=== PATIENT | female | born 1955 | race Caucasian/White ===

== ENCOUNTER 2017-02-21 12:01 | Inpatient (IN) | payer MEDICAID ==
[~2017-02-21] VITALS: Ht 167.6 cm; Wt 85.6 kg
[2017-02-21] MEDS ORDERED: ALBUTEROL/IPRATROPIUM 2.5MG/0.5MG, 3 ML NPPB ONE (12:30)
[2017-02-21] MEDS ORDERED: ASPIRIN 81 MG TABLET CHEW PO ONE (12:30)
[2017-02-21] MEDS ORDERED: SODIUM CHLORIDE FLUSH 10ML SYR IVF ONE (12:30)
[2017-02-21] MEDS ORDERED: methylPREDNISolone SOD SUCC 125 MG/2 ML IVP ONE (12:30)
[2017-02-21] MEDS ORDERED: methylPREDNISolone SOD SUCC 125 MG/2 ML ONE (12:33)
[2017-02-21] MEDS ORDERED: ASPIRIN 81 MG TABLET CHEW ONE (12:34)
[2017-02-21] MEDS ORDERED: NITROGLYCERIN SINGLE TAB 0.4 MG SL ONE ×2 (12:34→13:19)
[2017-02-21] MEDS: NITROGLYCERIN SINGLE TAB 0.4 MG SL PRN ×2 (12:40→13:23)
[2017-02-21 13:02] LABS: BLOOD UREA NITROGEN 10 mg/dL (7-18)
[2017-02-21] MEDS ORDERED: LORazepam 2 MG/ML, 1ML IVPush ONE (13:30)
[2017-02-21] MEDS ORDERED: LORazepam 2 MG/ML, 1ML ONE (13:54)
[2017-02-21] MEDS ORDERED: HEPARIN 5,000 UNITS/ML, 1ML ONE (13:55)
[2017-02-21] MEDS ORDERED: HEPARIN 5,000 UNITS/ML, 1ML IV PRN (14:00)
[2017-02-21] MEDS ORDERED: HEPARIN 5,000 UNITS/ML, 1ML IV ONE (14:00)
[2017-02-21] MEDS ORDERED: SODIUM CHLORIDE FLUSH 10ML SYR IVF PRN (14:00)
[2017-02-21] MEDS ORDERED: HEPARIN 25,000 UNITS/500ML PMX 500 ML IV PRN (14:00)
[2017-02-21] MEDS ORDERED: MIDAZOLAM 1 MG/ML, 5ML ONE ×2 (15:22→16:11)
[2017-02-21] MEDS ORDERED: LIDOCAINE 2%, 20ML ONE (15:23)
[2017-02-21] MEDS ORDERED: NITROGLYCERIN 5 MG/ML, 10ML ONE (15:23)
[2017-02-21] MEDS ORDERED: HEPARIN 1,000 UNITS/ML, 10ML ONE (15:23)
[2017-02-21] MEDS ORDERED: BIVALIRUDIN 250 MG ONE ×2 (15:23→17:14)
[2017-02-21] MEDS ORDERED: FENTANYL PF 100 MCG/2ML ONE ×3 (15:23→17:00)
[2017-02-21] MEDS ORDERED: VERAPAMIL 2.5 MG/ML, 2ML ONE ×2 (15:23→16:24)
[2017-02-21] MEDS ORDERED: TEMAZEPAM 15 MG CAPSULE PO PRN (15:30)
[2017-02-21] MEDS ORDERED: ENALAPRILAT 1.25 MG/ML, 2ML IVPush PRN (15:30)
[2017-02-21] MEDS ORDERED: morphine SULFATE 10 MG/ML, 1ML IVPush PRN (15:30)
[2017-02-21] MEDS ORDERED: ACETAMINOPHEN 325 MG TABLET PO PRN (15:30)
[2017-02-21] MEDS ORDERED: ONDANSETRON 2MG/ML, 2ML IVPush PRN (15:30)
[2017-02-21 15:53] LABS: IS PT STATUS REG ER OR PRE ER? NO
[2017-02-21] MEDS ORDERED: PRASUGREL 10 MG TABLET ONE (16:11)
[2017-02-21] MEDS ORDERED: DIPHENHYDRAMINE 50 MG/ML, 1ML ONE (17:44)
[2017-02-21] MEDS ORDERED: BIVALIRUDIN 250 MG in DEXTROSE 5% 50 ML IV SCH (18:41)
[2017-02-21] MEDS ORDERED: LIDOCAINE 1%-EPI 1:100K, 20ML ONE (18:46)
[2017-02-21] MEDS: HYDROcodone/APAP 5/325 TABLET PO PRN (19:53)
[2017-02-21] MEDS: CEFTRIAXONE PMX 2GM/50ML 50 ML IV SCH (20:27)
[2017-02-21] MEDS: methylPREDNISolone SOD SUCC 125 MG/2 ML IVPush SCH ×2 (20:28→21:30)
[2017-02-21] MEDS: NICOTINE 21 MG/24 HR PATCH.TD24 TD SCH (20:28)
[2017-02-21] MEDS: DOXYCYCLINE 100MG TABLET PO SCH (20:29)
[2017-02-21] MEDS: SODIUM CHLORIDE 0.9% 1,000 ML IV SCH (20:29)
[2017-02-21] MEDS: ATORVASTATIN 80 MG TABLET PO SCH (20:29)
[2017-02-21 20:46] LABS: IS PT STATUS REG ER OR PRE ER? NO
[2017-02-21 22:05] VITALS: BP 105/75
[2017-02-22] MEDS: ALBUTEROL/IPRATROPIUM 2.5MG/0.5MG, 3 ML NPPB PRN (00:11)
[2017-02-22 00:43] LABS: IS PT STATUS REG ER OR PRE ER? NO
[2017-02-22] MEDS: methylPREDNISolone SOD SUCC 125 MG/2 ML IVPush SCH ×3 (03:26→15:30)
[2017-02-22] MEDS: SODIUM CHLORIDE 0.9% 1,000 ML IV SCH (04:19)
[2017-02-22] MEDS ORDERED: ASPIRIN 325 MG TABLET EC PO SCH (06:00)
[2017-02-22 06:07] LABS: BLOOD UREA NITROGEN 13 mg/dL (7-18)
[2017-02-22 06:08] LABS: BLOOD UREA NITROGEN 14 mg/dL (7-18)
[2017-02-22 06:15] LABS: IS PT STATUS REG ER OR PRE ER? NO
[2017-02-22] MEDS: PRASUGREL 10 MG TABLET PO SCH (08:37)
[2017-02-22] MEDS: LISINOPRIL 5 MG TABLET PO SCH (08:38)
[2017-02-22] MEDS: DOXYCYCLINE 100MG TABLET PO SCH ×2 (08:38→21:56)
[2017-02-22] MEDS: HYDROcodone/APAP 5/325 TABLET PO PRN (10:09)
[2017-02-22] MEDS: NICOTINE 21 MG/24 HR PATCH.TD24 TD SCH (15:30)
[2017-02-22] MEDS: CEFTRIAXONE PMX 2GM/50ML 50 ML IV SCH (15:40)
[2017-02-22 20:51] VITALS: BP_SYST 105; BP_SYST 132; BP_DIAS 61; BP_DIAS 69
[2017-02-22] MEDS: methylPREDNISolone SOD SUCC 40 MG/ML IVPush SCH (21:56)
[2017-02-22] MEDS: ATORVASTATIN 80 MG TABLET PO SCH (21:57)
[2017-02-23 01:54] VITALS: BP 105/67
[2017-02-23] MEDS: methylPREDNISolone SOD SUCC 40 MG/ML IVPush SCH ×3 (02:52→21:43)
[2017-02-23 06:00] LABS: BLOOD UREA NITROGEN 29 mg/dL (7-18)
[2017-02-23] MEDS ORDERED: ASPIRIN 325 MG TABLET EC PO SCH (06:00)
[2017-02-23 08:00] VITALS: BP 103/58
[2017-02-23] MEDS: HYDROcodone/APAP 5/325 TABLET PO PRN ×4 (09:00→22:40)
[2017-02-23] MEDS: DOXYCYCLINE 100MG TABLET PO SCH ×2 (09:00→21:43)
[2017-02-23] MEDS: PRASUGREL 10 MG TABLET PO SCH (09:00)
[2017-02-23] MEDS: LISINOPRIL 5 MG TABLET PO SCH (09:03)
[2017-02-23 14:00] VITALS: BP 103/56
[2017-02-23] MEDS: ALBUTEROL/IPRATROPIUM 2.5MG/0.5MG, 3 ML NPPB PRN ×2 (16:15→19:46)
[2017-02-23] MEDS: CEFTRIAXONE PMX 2GM/50ML 50 ML IV SCH (17:17)
[2017-02-23] MEDS: NICOTINE 21 MG/24 HR PATCH.TD24 TD SCH (17:17)
[2017-02-23] MEDS ORDERED: METOPROLOL SUCCINATE 25 MG TAB.ER.24H PO SCH (18:00)
[2017-02-23] MEDS ORDERED: ESTR1.25 PO (18:06)
[2017-02-23] MEDS ORDERED: DRON2.5C PO (18:07)
[2017-02-23 19:55] VITALS: BP 107/70
[2017-02-23] MEDS: ATORVASTATIN 80 MG TABLET PO SCH (21:43)
[2017-02-24 02:00] VITALS: BP 117/76
[2017-02-24] MEDS: HYDROcodone/APAP 5/325 TABLET PO PRN ×2 (02:45→14:29)
[2017-02-24] MEDS: methylPREDNISolone SOD SUCC 40 MG/ML IVPush SCH (05:31)
[2017-02-24 05:43] LABS: BLOOD UREA NITROGEN 30 mg/dL (7-18)
[2017-02-24] MEDS ORDERED: ASPIRIN 81 MG TABLET EC PO SCH (06:00)
[2017-02-24 07:40] VITALS: BP 147/84
[2017-02-24] MEDS ORDERED: LISINOPRIL 5 MG TABLET PO SCH (09:00)
[2017-02-24] MEDS: PRASUGREL 10 MG TABLET PO SCH (10:46)
[2017-02-24] MEDS: DOXYCYCLINE 100MG TABLET PO SCH (10:46)
[2017-02-24] MEDS ORDERED: DOCUSATE 100 MG CAPSULE ONE (11:12)
[2017-02-24] MEDS ORDERED: DOCUSATE 100 MG CAPSULE PO PRN (11:30)
[2017-02-24 12:25] VITALS: BP 151/79
[2017-02-24] MEDS: NICOTINE 21 MG/24 HR PATCH.TD24 TD SCH (14:29)
[2017-02-24] MEDS ORDERED: METO25TA91 PO (15:09)
[2017-02-24] MEDS ORDERED: ATOR80TA75 PO (15:09)
[2017-02-24] MEDS ORDERED: PRAS10TA4 PO (15:09)
[2017-02-24] MEDS ORDERED: PRED20TA PO (15:09)
[2017-02-24] MEDS ORDERED: DOXY100T PO (15:09)
[2017-02-24] MEDS ORDERED: LISI-167 PO (15:09)
[2017-02-24] MEDS ORDERED: ASPI-621 PO (15:09)
[2017-02-24] MEDS ORDERED: CEFD300C37 PO (15:09)
[2017-02-25] MEDS ORDERED: LISINOPRIL 10 MG TABLET PO SCH (09:00)
== END 2017-02-24 19:02 | disposition home or self-care (01) | DRG 248 ==
LOC: ED 13:18 → EDIP 13:44 → CSU 18:45 → 5SO 02-22 12:39
PROVIDERS: ATTEND Internal Medicine
PROC: 027 Heart and Great Vessels, Dilation (ICD-10-PCS; principal; 2017-02-21)
PROC: 4A023N7 Measurement of Cardiac Sampling and Pressure, Left Heart, Percutaneous Approach (ICD-10-PCS; 2017-02-21)
PROC: B2151ZZ Fluoroscopy of Left Heart using Low Osmolar Contrast (ICD-10-PCS; 2017-02-21)
DX: I21.4 Non-ST elevation (NSTEMI) myocardial infarction (principal); J44.1 Chronic obstructive pulmonary disease with (acute) exacerbation; E66.9 Obesity, unspecified; F17.210 Nicotine dependence, cigarettes, uncomplicated; D75.89 Other specified diseases of blood and blood-forming organs; E78.5 Hyperlipidemia, unspecified; I10 Essential (primary) hypertension; I25.10 Atherosclerotic heart disease of native coronary artery without angina pectoris; Z68.30 Body mass index [BMI] 30.0-30.9, adult; Z80.0 Family history of malignant neoplasm of digestive organs; Z82.49 Family history of ischemic heart disease and other diseases of the circulatory system; Z79.82 Long term (current) use of aspirin
CPT/HCPCS: 36415; 71020; 80048; 80061; 82040; 82607; 82746; 83735; 83880; 84100; 84443; 84484; 85025; 85520; 85610; 85730; 87081; 92928; 92978; 92979; 93005; 93306; 93458; 94640; 96372; 96374; 96375; 99156; 99157; C1753; C1760; C1876; C1894; J0583; J0696; J1644; J2250; J3010; J3490; J7620; C1725; C1769; C1887; J1200; J2060; J2270; J2920; J2930; J7030; J7512; Q9967

== ENCOUNTER 2017-06-21 14:06 | Inpatient (IN) | payer MEDICAID ==
[~2017-06-21] VITALS: Ht 167.6 cm; Wt 89.0 kg
[~2017-06-21 14:06] MED LIST: ASPI-621 PO; ATOR-2 PO; CEFD300C37 PO; DOXY100T PO; DRON2.5C PO; ESTR1.25 PO; LISI-167 PO; METO25TA91 PO; PRAS10TA4 PO; PRED20TA PO
[2017-06-21] MEDS ORDERED: PLEASE ENTER HEIGHT AND WEIGHT MC SCH (14:30)
[2017-06-21] MEDS ORDERED: SODIUM CHLORIDE 0.9% 1,000ML IVBOLUS ONE ×3 (14:30→17:00)
[2017-06-21] MEDS ORDERED: SODIUM CHLORIDE FLUSH 10ML SYR IVF ONE (14:30)
[2017-06-21 15:57] LABS: HEMATOCRIT 48.1 % (34.6-47.8); HEMOGLOBIN 16.5 g/dL (11.7-16.4); WHITE BLOOD COUNT 9.3 x10^3/uL (3.4-10)
[2017-06-21 16:00] LABS: OCCBLD OBC PASS
[2017-06-21 16:05] LABS: ASPARTATE AMINO TRANSFERASE 225 U/L (15-37); BLOOD UREA NITROGEN 20 mg/dL (7-18)
[2017-06-21 16:14] LABS: IS PT STATUS REG ER OR PRE ER? YES
[2017-06-21] MEDS ORDERED: OMNIPAQUE 350 MG/ML, 100ML BOTTLE ONE (17:16)
[2017-06-21] MEDS ORDERED: MOVIPREP POWDER 1 PREP KIT PO ONE (18:00)
[2017-06-21] MEDS ORDERED: TRAZ50TA18 PO (18:10)
[2017-06-21 18:12] LABS: HEMOGLOBIN 15.2 g/dL (11.7-16.4)
[2017-06-21] MEDS ORDERED: GOLYTELY 4,000ML ORAL.SOL PO ONE (18:30)
[2017-06-21] MEDS ORDERED: hydrALAzine 20 MG/ML, 1ML IVPush PRN (18:30)
[2017-06-21] MEDS: HYDROmorphone 2 MG/ML, 1ML IVPush PRN ×3 (21:13→22:40)
[2017-06-21] MEDS: LACTATED RINGERS 1,000 ML IV SCH (21:15)
[2017-06-21] MEDS ORDERED: MOVIPREP POWDER 1 PREP KIT PO STA (21:49)
[2017-06-21] MEDS ORDERED: Clonidine BC (23:09)
[2017-06-21] MEDS ORDERED: seroquel (23:10)
[2017-06-22 00:02] LABS: FERRITIN 526.3 ng/mL (8-252)
[2017-06-22] MEDS: ONDANSETRON 2MG/ML, 2ML IV PRN (00:22)
[2017-06-22 00:46] LABS: HEMATOCRIT 47.7 % (34.6-47.8); HEMOGLOBIN 16.2 g/dL (11.7-16.4); WHITE BLOOD COUNT 18.1 x10^3/uL (3.4-10)
[2017-06-22 00:47] LABS: DIFF TOTAL CELLS COUNTED 100 CELL DIFF
[2017-06-22 01:13] VITALS: BP 94/64
[2017-06-22 01:28] LABS: VERIFY COUNTS? YES
[2017-06-22 01:30] LABS: ANISOCYTOSIS 1+
[2017-06-22 01:31] LABS: LARGE PLATELETS 1+
[2017-06-22 05:08] LABS: HEMATOCRIT 45.7 % (34.6-47.8); HEMOGLOBIN 15.6 g/dL (11.7-16.4)
[2017-06-22] MEDS: LACTATED RINGERS 1,000 ML IV SCH (05:20)
[2017-06-22 05:21] LABS: BLOOD UREA NITROGEN 23 mg/dL (7-18)
[2017-06-22] MEDS: PANTOPRAZOLE 40 MG IV IVPush SCH ×2 (05:24→18:10)
[2017-06-22 06:47] VITALS: BP 113/75
[2017-06-22] MEDS ORDERED: LABETALOL 5MG/ML, 20ML IV PRN ×2 (07:00→13:30)
[2017-06-22] MEDS ORDERED: ALBUTEROL/IPRATROPIUM 2.5MG/0.5MG, 3 ML NPPB PRN ×2 (07:00→13:30)
[2017-06-22] MEDS ORDERED: MIDAZOLAM 1 MG/ML, 2ML IV PRN ×2 (07:00→13:30)
[2017-06-22] MEDS ORDERED: PROMETHAZINE 25 MG/ML, 1ML IV PRN ×2 (07:00→13:30)
[2017-06-22] MEDS ORDERED: ONDANSETRON 2MG/ML, 2ML IVPush PRN ×2 (07:00→13:30)
[2017-06-22] MEDS ORDERED: hydrALAzine 20 MG/ML, 1ML IV PRN ×2 (07:00→13:30)
[2017-06-22] MEDS ORDERED: PROPOFOL 10 MG/ML, 20ML ONE ×2 (07:14→10:58)
[2017-06-22] MEDS ORDERED: PANTOPRAZOLE 40 MG IV IVPush SCH (07:30)
[2017-06-22] MEDS ORDERED: FENTANYL PF 100 MCG/2ML ONE ×2 (08:13→12:40)
[2017-06-22] MEDS: FENTANYL PF 100 MCG/2ML IV PRN ×4 (08:15→12:50)
[2017-06-22] MEDS ORDERED: LIDOCAINE GEL 2%, 5ML ONE (10:28)
[2017-06-22] MEDS ORDERED: FENTANYL PF 250 MCG/5ML ONE (10:29)
[2017-06-22] MEDS ORDERED: MIDAZOLAM 1 MG/ML, 2ML ONE (10:29)
[2017-06-22] MEDS ORDERED: SODIUM CHLORIDE 0.9% 1,000ML IVBOLUS ONE (10:30)
[2017-06-22] MEDS ORDERED: NEOSTIGMINE 1 MG/ML, 10ML ONE (10:44)
[2017-06-22] MEDS ORDERED: ONDANSETRON 2MG/ML, 2ML ONE (10:44)
[2017-06-22] MEDS ORDERED: PHENYLEPHRINE 10 MG/ML ONE (10:44)
[2017-06-22] MEDS ORDERED: BUPIVACAINE/PF 0.5% ONE (10:46)
[2017-06-22] MEDS ORDERED: EPINEPHRINE 1 MG/ML, 1ML ONE (10:47)
[2017-06-22] MEDS ORDERED: SUCCINYLCHOLINE 20 MG/ML, 10ML ONE (10:58)
[2017-06-22] MEDS ORDERED: DEXAMETHASONE 4 MG/ML, 1ML ONE (10:58)
[2017-06-22] MEDS ORDERED: ROCURONIUM 10 MG/ML,10ML ONE (10:58)
[2017-06-22] MEDS ORDERED: GLYCOPYRROLATE 0.2MG/1ML, 5ML ONE (10:58)
[2017-06-22] MEDS ORDERED: CEFOTETAN PMX 2GM/50ML 50 ML ONE (10:58)
[2017-06-22] MEDS ORDERED: PIPERACILLIN/TAZO/PMX 3.375GM 50 ML ONE (12:04)
[2017-06-22] MEDS ORDERED: MEPERIDINE/PF 25MG/0.5ML ONE (13:13)
[2017-06-22] MEDS ORDERED: DIAZEPAM 5 MG/ML, 2ML IVPush PRN (13:30)
[2017-06-22] MEDS ORDERED: MEPERIDINE/PF 25MG/0.5ML IVPush PRN ×2 (13:30)
[2017-06-22] MEDS ORDERED: OXYcodone 5 MG/5 ML ORAL.SOL UDC PO PRN (13:30)
[2017-06-22] MEDS ORDERED: LORazepam 2 MG/ML, 1ML IVPush PRN ×2 (13:30)
[2017-06-22] MEDS ORDERED: FENTANYL PF 100 MCG/2ML IV PRN (13:30)
[2017-06-22] MEDS ORDERED: HYDROmorphone 1 MG/ML, 1ML IV PRN (13:30)
[2017-06-22] MEDS: SODIUM CHLORIDE 0.9% 1,000 ML IV SCH ×2 (14:28→21:10)
[2017-06-22] MEDS: PIPERACILLIN/TAZO/PMX 3.375GM 50 ML IV SCH ×2 (14:28→20:57)
[2017-06-22] MEDS ORDERED: SODIUM CHLORIDE 0.9% 1,000 ML IV SCH (14:30)
[2017-06-22 14:45] VITALS: BP 106/84
[2017-06-22 15:30] LABS: DAU SCREEN DISCLAIMER
[2017-06-22] MEDS ORDERED: MAGNESIUM SULFATE PMX 2GM/50ML 50 ML IV ONE (18:30)
[2017-06-22] MEDS: THIAMINE 100 MG, MVI ADULT 10 ML in D5%-0.9% NACL 1,000 ML IV SCH (19:24)
[2017-06-22] MEDS: FOLIC ACID 1 MG TABLET PO SCH (19:53)
[2017-06-22] MEDS: ENOXAPARIN 30 MG/0.3 ML SQ SCH (21:22)
[2017-06-22] MEDS: DIAZEPAM 5 MG/ML, 10ML VIAL IV PRN ×2 (21:22→22:49)
[2017-06-23] MEDS ORDERED: DIAZEPAM 5 MG/ML, 10ML VIAL IV PRN (01:00)
[2017-06-23] MEDS: HYDROmorphone 2 MG/ML, 1ML IVPush PRN (01:07)
[2017-06-23] MEDS: PIPERACILLIN/TAZO/PMX 3.375GM 50 ML IV SCH ×4 (03:24→22:10)
[2017-06-23] MEDS: SODIUM CHLORIDE 0.9% 1,000 ML IV SCH ×2 (03:50→06:44)
[2017-06-23 04:00] VITALS: BP 128/75
[2017-06-23 04:37] LABS: HEMATOCRIT 32.8 % (34.6-47.8); HEMOGLOBIN 11.3 g/dL (11.7-16.4); WHITE BLOOD COUNT 15.1 x10^3/uL (3.4-10)
[2017-06-23 04:50] LABS: ASPARTATE AMINO TRANSFERASE 108 U/L (15-37); BLOOD UREA NITROGEN 23 mg/dL (7-18)
[2017-06-23] MEDS: PANTOPRAZOLE 40 MG IV IVPush SCH ×2 (05:19→18:30)
[2017-06-23 05:38] LABS: DIFF TOTAL CELLS COUNTED 100 CELL DIFF
[2017-06-23 05:41] LABS: VERIFY COUNTS? YES
[2017-06-23 05:42] LABS: ANISOCYTOSIS 1+; LARGE PLATELETS 1+
[2017-06-23] MEDS ORDERED: ALBUTEROL SULFATE 2.5 MG/3 ML NPPB SCH (07:00)
[2017-06-23] MEDS: LORazepam 2 MG/ML, 1ML IVPush PRN ×5 (09:13→23:03)
[2017-06-23] MEDS: ENOXAPARIN 30 MG/0.3 ML SQ SCH ×2 (09:14→19:50)
[2017-06-23] MEDS ORDERED: ALBUTEROL SULFATE 2.5 MG/3 ML NPPB PRN (10:00)
[2017-06-23 12:14] VITALS: BP 122/73
[2017-06-23 13:17] LABS: HEMOGLOBIN 10.6 g/dL (11.7-16.4)
[2017-06-23 19:42] VITALS: BP 113/62
[2017-06-23] MEDS: THIAMINE 100 MG, MVI ADULT 10 ML in D5%-0.9% NACL 1,000 ML IV SCH (19:49)
[2017-06-23] MEDS: FOLIC ACID 1 MG TABLET PO SCH (19:49)
[2017-06-24 03:08] VITALS: BP 114/67
[2017-06-24] MEDS: PANTOPRAZOLE 40 MG IV IVPush SCH ×2 (03:41→16:57)
[2017-06-24] MEDS: PIPERACILLIN/TAZO/PMX 3.375GM 50 ML IV SCH ×4 (03:41→23:29)
[2017-06-24] MEDS: LORazepam 2 MG/ML, 1ML IVPush PRN ×7 (03:42→21:50)
[2017-06-24 05:50] LABS: HEMATOCRIT 28.6 % (34.6-47.8); HEMOGLOBIN 9.6 g/dL (11.7-16.4); WHITE BLOOD COUNT 7.6 x10^3/uL (3.4-10)
[2017-06-24 06:09] LABS: DIFF TOTAL CELLS COUNTED 100 CELL DIFF
[2017-06-24 06:14] LABS: VERIFY COUNTS? YES
[2017-06-24 06:15] LABS: ANISOCYTOSIS 1+; LARGE PLATELETS 1+
[2017-06-24 06:23] LABS: ASPARTATE AMINO TRANSFERASE 84 U/L (15-37); BLOOD UREA NITROGEN 20 mg/dL (7-18)
[2017-06-24 06:52] VITALS: BP 152/86
[2017-06-24] MEDS: ENOXAPARIN 30 MG/0.3 ML SQ SCH ×2 (09:41→20:35)
[2017-06-24 13:22] VITALS: BP 137/73
[2017-06-24 15:16] LABS: HEMATOCRIT 29.8 % (34.6-47.8); HEMOGLOBIN 10.2 g/dL (11.7-16.4)
[2017-06-24] MEDS: CHLORDIAZEPOXIDE 25 MG CAPSULE PO SCH ×2 (16:57→20:35)
[2017-06-24] MEDS: FOLIC ACID 1 MG TABLET PO SCH (20:35)
[2017-06-24 20:47] VITALS: BP 155/79
[2017-06-25] MEDS: LORazepam 2 MG/ML, 1ML IVPush PRN ×6 (00:10→19:49)
[2017-06-25] MEDS: THIAMINE 100 MG, MVI ADULT 10 ML in D5%-0.9% NACL 1,000 ML IV SCH ×2 (00:10→20:58)
[2017-06-25 03:42] VITALS: BP 150/81
[2017-06-25] MEDS: PIPERACILLIN/TAZO/PMX 3.375GM 50 ML IV SCH ×2 (04:29→10:06)
[2017-06-25 05:17] LABS: HEMATOCRIT 29.4 % (34.6-47.8); HEMOGLOBIN 10.2 g/dL (11.7-16.4); WHITE BLOOD COUNT 5.9 x10^3/uL (3.4-10)
[2017-06-25 05:32] LABS: ASPARTATE AMINO TRANSFERASE 65 U/L (15-37); BLOOD UREA NITROGEN 14 mg/dL (7-18)
[2017-06-25] MEDS: PANTOPRAZOLE 40 MG IV IVPush SCH ×2 (05:33→17:20)
[2017-06-25 05:49] LABS: DIFF TOTAL CELLS COUNTED 100 CELL DIFF
[2017-06-25 05:52] LABS: ANISOCYTOSIS 1+; VERIFY COUNTS? YES
[2017-06-25 05:53] LABS: LARGE PLATELETS 1+; POIKILOCYTOSIS 1+
[2017-06-25 07:39] VITALS: BP 159/84
[2017-06-25] MEDS ORDERED: MAGNESIUM SULFATE PMX 2GM/50ML 50 ML IV ONE (08:00)
[2017-06-25] MEDS: CHLORDIAZEPOXIDE 25 MG CAPSULE PO SCH ×3 (08:43→19:49)
[2017-06-25] MEDS: ENOXAPARIN 30 MG/0.3 ML SQ SCH (08:43)
[2017-06-25 12:51] VITALS: BP 132/69
[2017-06-25] MEDS: CEFTRIAXONE PMX 1GM/50ML 50 ML IV SCH (16:28)
[2017-06-25] MEDS: METRONIDAZOLE PMX 500MG/100ML 100 ML IV SCH (17:20)
[2017-06-25] MEDS: PRASUGREL 10 MG TABLET PO SCH (17:21)
[2017-06-25] MEDS: NICOTINE 21 MG/24 HR PATCH.TD24 TD SCH (17:21)
[2017-06-25 19:04] VITALS: BP 148/83
[2017-06-25] MEDS: FOLIC ACID 1 MG TABLET PO SCH (19:50)
[2017-06-25] MEDS: HYDROmorphone 2 MG/ML, 1ML IVPush PRN (20:58)
[2017-06-26] MEDS: METRONIDAZOLE PMX 500MG/100ML 100 ML IV SCH ×3 (01:02→17:09)
[2017-06-26] MEDS: LORazepam 2 MG/ML, 1ML IVPush PRN (01:02)
[2017-06-26 01:15] VITALS: BP 141/81
[2017-06-26 01:19] VITALS: BP 126/70
[2017-06-26] MEDS: HYDROmorphone 2 MG/ML, 1ML IVPush PRN ×3 (04:29→18:47)
[2017-06-26 04:57] LABS: ASPARTATE AMINO TRANSFERASE 73 U/L (15-37); BLOOD UREA NITROGEN 8 mg/dL (7-18)
[2017-06-26] MEDS: PANTOPRAZOLE 40 MG IV IVPush SCH ×2 (05:05→17:17)
[2017-06-26] MEDS: ASPIRIN 81 MG TABLET EC PO SCH (05:05)
[2017-06-26] MEDS ORDERED: MAGNESIUM SULFATE PMX 2GM/50ML 50 ML IV ONE (06:00)
[2017-06-26 06:11] LABS: HEMATOCRIT 29.6 % (34.6-47.8); HEMOGLOBIN 10.1 g/dL (11.7-16.4); WHITE BLOOD COUNT 5.4 x10^3/uL (3.4-10)
[2017-06-26 07:13] VITALS: BP 142/66
[2017-06-26] MEDS: ENOXAPARIN 40 MG/0.4 ML SQ SCH (09:19)
[2017-06-26] MEDS: NICOTINE 21 MG/24 HR PATCH.TD24 TD SCH (09:19)
[2017-06-26] MEDS: CHLORDIAZEPOXIDE 25 MG CAPSULE PO SCH ×2 (09:19→19:25)
[2017-06-26 14:00] VITALS: BP 108/71
[2017-06-26] MEDS: CEFTRIAXONE PMX 1GM/50ML 50 ML IV SCH (16:17)
[2017-06-26] MEDS: PRASUGREL 10 MG TABLET PO SCH (17:10)
[2017-06-26 18:45] VITALS: BP 163/78
[2017-06-26] MEDS ORDERED: HYDROmorphone 1 MG/ML, 1ML ONE (18:46)
[2017-06-26] MEDS: ONDANSETRON 2MG/ML, 2ML IV PRN (19:25)
[2017-06-26] MEDS: FOLIC ACID 1 MG TABLET PO SCH (19:25)
[2017-06-26] MEDS: THIAMINE 100 MG, MVI ADULT 10 ML in D5%-0.9% NACL 1,000 ML IV SCH (20:55)
[2017-06-27 00:11] VITALS: BP 159/80
[2017-06-27] MEDS: LORazepam 2 MG/ML, 1ML IVPush PRN ×3 (00:19→20:15)
[2017-06-27] MEDS: METRONIDAZOLE PMX 500MG/100ML 100 ML IV SCH ×3 (00:41→17:26)
[2017-06-27 05:46] LABS: HEMATOCRIT 29.9 % (34.6-47.8); HEMOGLOBIN 10.5 g/dL (11.7-16.4); WHITE BLOOD COUNT 5.1 x10^3/uL (3.4-10)
[2017-06-27 05:57] LABS: ASPARTATE AMINO TRANSFERASE 104 U/L (15-37); BLOOD UREA NITROGEN 7 mg/dL (7-18)
[2017-06-27] MEDS: ASPIRIN 81 MG TABLET EC PO SCH (05:57)
[2017-06-27] MEDS: PANTOPRAZOLE 40 MG IV IVPush SCH (05:57)
[2017-06-27 07:22] VITALS: BP 116/66
[2017-06-27] MEDS: CHLORDIAZEPOXIDE 25 MG CAPSULE PO SCH ×2 (09:44→20:14)
[2017-06-27] MEDS: NICOTINE 21 MG/24 HR PATCH.TD24 TD SCH (09:45)
[2017-06-27] MEDS: ENOXAPARIN 40 MG/0.4 ML SQ SCH (09:45)
[2017-06-27] MEDS: CIPROFLOXACIN 500 MG TABLET PO SCH ×4 (12:00→20:14)
[2017-06-27 13:45] VITALS: BP 130/74
[2017-06-27] MEDS: PANTOPROZOLE 40MG TABLET PO SCH (14:19)
[2017-06-27] MEDS: PRASUGREL 10 MG TABLET PO SCH (17:26)
[2017-06-27 19:14] VITALS: BP 126/59
[2017-06-27] MEDS: FOLIC ACID 1 MG TABLET PO SCH (20:14)
[2017-06-27] MEDS: THIAMINE 100 MG, MVI ADULT 10 ML in D5%-0.9% NACL 1,000 ML IV SCH (21:30)
[2017-06-27] MEDS ORDERED: ALBUTEROL SULFATE 2.5 MG/3 ML ONE (22:02)
[2017-06-28] MEDS: METRONIDAZOLE PMX 500MG/100ML 100 ML IV SCH ×2 (00:36→09:17)
[2017-06-28] MEDS: PANTOPROZOLE 40MG TABLET PO SCH ×3 (00:36→19:54)
[2017-06-28 01:10] VITALS: BP 118/67
[2017-06-28] MEDS: HYDROmorphone 2 MG/ML, 1ML IVPush PRN (01:26)
[2017-06-28] MEDS: ASPIRIN 81 MG TABLET EC PO SCH (06:08)
[2017-06-28] MEDS ORDERED: ALBUTEROL SULFATE 2.5 MG/3 ML ONE (06:25)
[2017-06-28] MEDS: ALBUTEROL SULFATE 2.5 MG/3 ML NPPB SCH ×2 (06:25→20:01)
[2017-06-28 07:14] VITALS: BP 127/72
[2017-06-28] MEDS: ENOXAPARIN 40 MG/0.4 ML SQ SCH (09:18)
[2017-06-28] MEDS: CIPROFLOXACIN 500 MG TABLET PO SCH ×2 (09:18→19:54)
[2017-06-28] MEDS: NICOTINE 21 MG/24 HR PATCH.TD24 TD SCH (09:18)
[2017-06-28] MEDS: CHLORDIAZEPOXIDE 25 MG CAPSULE PO SCH (09:18)
[2017-06-28] MEDS ORDERED: BISACODYL 10 MG SUPP PR ONE (13:39)
[2017-06-28] MEDS: BISACODYL 10 MG SUPP PR SCH ×2 (14:00→19:54)
[2017-06-28 14:10] VITALS: BP 116/68
[2017-06-28] MEDS: metroNIDAZOLE 500 MG TABLET PO SCH ×2 (16:07→19:54)
[2017-06-28] MEDS: PRASUGREL 10 MG TABLET PO SCH (17:14)
[2017-06-28] MEDS: FOLIC ACID 1 MG TABLET PO SCH (19:54)
[2017-06-28 20:01] VITALS: BP 129/71
[2017-06-28] MEDS: LORazepam 2 MG/ML, 1ML IVPush PRN (21:41)
[2017-06-28] MEDS: THIAMINE 100 MG, MVI ADULT 10 ML in D5%-0.9% NACL 1,000 ML IV SCH (22:22)
[2017-06-29 03:02] VITALS: BP 113/74
[2017-06-29 05:06] LABS: HEMATOCRIT 29.7 % (34.6-47.8); HEMOGLOBIN 10.4 g/dL (11.7-16.4); WHITE BLOOD COUNT 5.8 x10^3/uL (3.4-10)
[2017-06-29] MEDS: ASPIRIN 81 MG TABLET EC PO SCH (05:08)
[2017-06-29 05:11] LABS: BLOOD UREA NITROGEN 3 mg/dL (7-18)
[2017-06-29 05:12] LABS: ASPARTATE AMINO TRANSFERASE 50 U/L (15-37)
[2017-06-29 07:07] VITALS: BP 145/76
[2017-06-29] MEDS: metroNIDAZOLE 500 MG TABLET PO SCH (08:19)
[2017-06-29] MEDS: CIPROFLOXACIN 500 MG TABLET PO SCH (08:19)
[2017-06-29] MEDS: PANTOPROZOLE 40MG TABLET PO SCH (08:19)
[2017-06-29] MEDS: ENOXAPARIN 40 MG/0.4 ML SQ SCH ×2 (08:20→08:24)
[2017-06-29] MEDS: NICOTINE 21 MG/24 HR PATCH.TD24 TD SCH (08:20)
[2017-06-29] MEDS: LORazepam 2 MG/ML, 1ML IVPush PRN (09:38)
[2017-06-29] MEDS ORDERED: POTA20TA91 PO (12:21)
[2017-06-29] MEDS ORDERED: FURO-93 PO (12:21)
[2017-06-29] MEDS ORDERED: CIPR500T87 PO (12:21)
[2017-06-29] MEDS ORDERED: METR500T PO (12:21)
[2017-06-29 13:33] VITALS: BP 132/84
== END 2017-06-29 14:12 | disposition home or self-care (01) | DRG 853 ==
LOC: ED 16:12 → EDIP 18:17 → 4NOR 20:00 → CCU 06-22 16:45 → 4NOR 06-23 12:03
PROVIDERS: ADMIT Family Medicine; ATTEND Family Medicine
PROC: 0DQ80ZZ Repair Small Intestine, Open Approach (ICD-10-PCS; 2017-06-22)
PROC: 0T778DZ Dilation of Left Ureter with Intraluminal Device, Via Natural or Artificial Opening Endoscopic (ICD-10-PCS; 2017-06-22)
PROC: 0DBM8ZX Excision of Descending Colon, Via Natural or Artificial Opening Endoscopic, Diagnostic (ICD-10-PCS; 2017-06-22)
PROC: 0DBL8ZX Excision of Transverse Colon, Via Natural or Artificial Opening Endoscopic, Diagnostic (ICD-10-PCS; 2017-06-22)
PROC: 0DJ08ZZ Inspection of Upper Intestinal Tract, Via Natural or Artificial Opening Endoscopic (ICD-10-PCS; 2017-06-22)
PROC: 0T9B70Z Drainage of Bladder with Drainage Device, Via Natural or Artificial Opening (ICD-10-PCS; principal; 2017-06-22 07:00)
DX: A41.9 Sepsis, unspecified organism (principal); G93.40 Encephalopathy, unspecified; N17.0 Acute kidney failure with tubular necrosis; K55.9 Vascular disorder of intestine, unspecified; D69.6 Thrombocytopenia, unspecified; I95.9 Hypotension, unspecified; N13.2 Hydronephrosis with renal and ureteral calculous obstruction; N39.0 Urinary tract infection, site not specified; F10.239 Alcohol dependence with withdrawal, unspecified; E86.9 Volume depletion, unspecified; F15.90 Other stimulant use, unspecified, uncomplicated; F17.200 Nicotine dependence, unspecified, uncomplicated; I10 Essential (primary) hypertension; I25.10 Atherosclerotic heart disease of native coronary artery without angina pectoris; I25.2 Old myocardial infarction; J44.9 Chronic obstructive pulmonary disease, unspecified; B96.89 Other specified bacterial agents as the cause of diseases classified elsewhere; K20.9 Esophagitis, unspecified; K29.70 Gastritis, unspecified, without bleeding; K57.90 Diverticulosis of intestine, part unspecified, without perforation or abscess without bleeding; K66.0 Peritoneal adhesions (postprocedural) (postinfection); K76.9 Liver disease, unspecified; R74.0 Nonspecific elevation of levels of transaminase and lactic acid dehydrogenase [LDH]; M47.816 Spondylosis without myelopathy or radiculopathy, lumbar region; Z80.0 Family history of malignant neoplasm of digestive organs; Z80.1 Family history of malignant neoplasm of trachea, bronchus and lung; Z80.8 Family history of malignant neoplasm of other organs or systems; Z95.5 Presence of coronary angioplasty implant and graft
CPT/HCPCS: 36415; 71010; 74000; 74177; 76000; 76705; 80048; 80053; 80307; 81001; 82105; 82140; 82272; 82607; 82728; 82746; 83540; 83550; 83605; 83735; 83880; 84425; 84443; 84484; 85014; 85018; 85025; 85610; 85730; 86850; 86900; 87077; 87081; 87086; 87186; 87324; 88305; 93005; 94640; 96360; J0171; J0696; J1100; J1170; J1650; J2175; J2250; J2405; J2543; J2704; J2710; J3010; J3360; J3411; J3490; J7042; J7613; Q9967; C1758; C1769; C2617; C9113; G0479; J0330; J2060; J2370; J3475; J7030; J7120; S0074

== ENCOUNTER → 2017-07-25 | Outpatient (CLI) | payer MEDICAID ==
[~2017-07-25] MED LIST changes: +CIPR500T87 PO; +Clonidine BC; +FURO-93 PO; +METR500T PO; +POTA20TA91 PO; +TRAZ50TA18 PO; +seroquel
== END | disposition home or self-care (01) ==
LOC: CVU 12:32
PROVIDERS: ATTEND Internal Medicine Cardiovascular Disease
DX: R60.9 Edema, unspecified (principal)
CPT/HCPCS: 93306

== ENCOUNTER → 2017-08-13 | Outpatient (CLI) | payer MEDICAID ==
[~2017-08-13] MED LIST changes: +BUSP5TAB2 PO; +CLON0.1T PO
== END | disposition home or self-care (01) ==
LOC: RAD 12:53
PROVIDERS: ATTEND Urology
DX: Z01.818 Encounter for other preprocedural examination (principal); N20.0 Calculus of kidney
CPT/HCPCS: 71046

== ENCOUNTER 2017-08-29 12:23 | Inpatient (IN) | payer MEDICAID ==
[~2017-08-29] VITALS: Ht 165.1 cm; Wt 87.2 kg
[~2017-08-29 12:23] MED LIST changes: -BUSP5TAB2 PO; -CLON0.1T PO
[2017-08-29 14:37] LABS: BASOPHILS # (AUTO) 0.05 x10^3/uL (0-0.1); BASOPHILS % (AUTO) 1 % (0-1); EOSINOPHILS # (AUTO) 0.15 x10^3/uL (0-0.4); EOSINOPHILS % (AUTO) 2 % (1-7); LYMPHOCYTES # (AUTO) 2.14 x10^3/uL (1-3.4); LYMPHOCYTES % (AUTO) 30 % (22-44); MD NO; MEAN CORPUSCULAR HGB CONC 33.8 g/dL (32.4-35.8); MEAN CORPUSCULAR VOLUME 97.5 fL (80-100); MEAN PLATELET VOLUME 11.1 fL (7.4-10.4); MONOCYTES % (AUTO) 7 % (2-9); NEUTROPHILS # (AUTO) 4.31 x10^3/uL (1.8-6.8); NEUTROPHILS % (AUTO) 60 % (42-75); PLATELET COUNT 100 x10^3/uL (130-400); RED BLOOD COUNT 4.36 x10^6/uL (3.82-5.3); RED CELL DISTRIBUTION WIDTH 12.8 % (9.6-15.2)
[2017-08-29 14:49] LABS: ALANINE AMINOTRANSFERASE 59 U/L (12-78); ALBUMIN 3.7 g/dL (3.4-5.0); ANION GAP 9 mmol/L (5-15); CALCIUM 9.1 mg/dL (8.5-10.1); CHLORIDE 98 mmol/L (98-107); CREATININE 2.23 mg/dL (0.55-1.02)
[2017-08-29 14:51] LABS: ALKALINE PHOSPHATASE 99 U/L (45-117); BILIRUBIN,TOTAL 1.5 mg/dL (0.2-1.0); TOTAL PROTEIN 8.3 g/dL (6.4-8.2)
[2017-08-29] MEDS ORDERED: SODIUM CHLORIDE 0.9% 1,000 ML IV ONE (18:00)
[2017-08-29] MEDS ORDERED: SODIUM CHLORIDE 0.9% 1,000ML IVBOLUS ONE (18:00)
[2017-08-29 19:58] LABS: CULTURE INDICATED? YES; MICROSCOPIC INDICATED
[2017-08-29 20:06] LABS: AMPHETAMINE SCREEN, URINE Negative (Negative); BARBITURATE SCREEN, URINE Positive (Negative); BENZODIAZEPINE SCREEN, URINE Positive (Negative); CANNABINOID SCREEN, URINE Negative (Negative); COCAINE SCREEN, URINE Negative (Negative); METHADONE SCREEN, URINE Negative (Negative); OPIATE SCREEN, URINE Negative (Negative)
[2017-08-29] MEDS ORDERED: CEFTRIAXONE PMX 1GM/50ML 50 ML IV ONE (21:00)
[2017-08-29] MEDS ORDERED: CEFTRIAXONE PMX 1GM/50ML 50 ML ONE (21:15)
[2017-08-29] MEDS ORDERED: BUSP5TAB2 PO (21:46)
[2017-08-29] MEDS ORDERED: CLON0.1T PO (21:46)
[2017-08-29] MEDS ORDERED: ONDANSETRON ODT 4 MG PO PRN (22:00)
[2017-08-29] MEDS ORDERED: DOCUSATE 100 MG CAPSULE PO PRN (22:00)
[2017-08-29] MEDS ORDERED: ACETAMINOPHEN 325 MG TABLET PO PRN (22:00)
[2017-08-29] MEDS ORDERED: hydrALAzine 20 MG/ML, 1ML IVPush PRN (22:00)
[2017-08-29 22:20] VITALS: BP 122/78
[2017-08-29] MEDS: NICOTINE 14MG/24 HR PATCH.TD24 TD SCH (22:38)
[2017-08-29] MEDS: METOPROLOL SUCCINATE 25 MG TAB.ER.24H PO SCH (22:38)
[2017-08-29] MEDS: TRAZODONE 50MG TABLET PO SCH (22:38)
[2017-08-29] MEDS: SODIUM CHLORIDE 0.9% 1,000 ML IV SCH (22:39)
[2017-08-30 01:37] VITALS: BP 87/57
[2017-08-30 01:48] VITALS: BP_SYST 57; BP_SYST 87; BP_DIAS 54; BP_DIAS 55
[2017-08-30 05:51] LABS: CALCIUM 8.4 mg/dL (8.5-10.1); CHLORIDE 105 mmol/L (98-107)
[2017-08-30 05:52] LABS: ANION GAP 9 mmol/L (5-15); CREATININE 1.47 mg/dL (0.55-1.02)
[2017-08-30 06:14] LABS: MEAN CORPUSCULAR HEMOGLOBIN 33.2 pg (27.0-34.8); MEAN CORPUSCULAR HGB CONC 34.1 g/dL (32.4-35.8); MEAN CORPUSCULAR VOLUME 97.4 fL (80-100); RED BLOOD COUNT 4.06 x10^6/uL (3.82-5.3); RED CELL DISTRIBUTION WIDTH 12.5 % (9.6-15.2)
[2017-08-30] MEDS: SODIUM CHLORIDE 0.9% 1,000 ML IV SCH ×2 (06:23→17:33)
[2017-08-30] MEDS: ASPIRIN 81 MG TABLET EC PO SCH (06:23)
[2017-08-30 06:52] LABS: BASOPHILS # (AUTO) 0.04 x10^3/uL (0-0.1); BASOPHILS % (AUTO) 1 % (0-1); EOSINOPHILS # (AUTO) 0.22 x10^3/uL (0-0.4); EOSINOPHILS % (AUTO) 4 % (1-7); LYMPHOCYTES # (AUTO) 2.86 x10^3/uL (1-3.4); LYMPHOCYTES % (AUTO) 50 % (22-44); MD SCAN; MEAN PLATELET VOLUME 11.7 fL (7.4-10.4); MONOCYTES # (AUTO) 0.63 x10^3/uL (0.2-0.8); MONOCYTES % (AUTO) 11 % (2-9); NEUTROPHILS % (AUTO) 35 % (42-75); PLATELET COUNT 81 x10^3/uL (130-400)
[2017-08-30 07:12] VITALS: BP 93/63
[2017-08-30] MEDS ORDERED: LISINOPRIL 10 MG TABLET PO SCH (09:00)
[2017-08-30 09:05] VITALS: BP 82/59
[2017-08-30] MEDS: TRAZODONE 50MG TABLET PO SCH ×2 (10:11→21:00)
[2017-08-30] MEDS: PRASUGREL 10 MG TABLET PO SCH (10:11)
[2017-08-30 10:31] LABS: CALCIUM 8.6 mg/dL (8.5-10.1)
[2017-08-30] MEDS: CIPROFLOXACIN/PMX 400MG/200ML 200 ML IV SCH ×2 (11:34→22:55)
[2017-08-30 12:47] VITALS: BP 97/61
[2017-08-30 19:58] VITALS: BP 134/72
[2017-08-30] MEDS ORDERED: CEFTRIAXONE PMX 1GM/50ML 50 ML IV SCH (21:00)
[2017-08-30] MEDS: NICOTINE 14MG/24 HR PATCH.TD24 TD SCH (21:20)
[2017-08-30] MEDS: METOPROLOL SUCCINATE 25 MG TAB.ER.24H PO SCH (21:20)
[2017-08-31] MEDS: SODIUM CHLORIDE 0.9% 1,000 ML IV SCH ×3 (02:43→10:57)
[2017-08-31 02:45] VITALS: BP 122/82
[2017-08-31] MEDS: ASPIRIN 81 MG TABLET EC PO SCH (05:20)
[2017-08-31 05:25] LABS: ALBUMIN 2.8 g/dL (3.4-5.0); CALCIUM 8.5 mg/dL (8.5-10.1); CHLORIDE 112 mmol/L (98-107)
[2017-08-31 05:31] LABS: ALANINE AMINOTRANSFERASE 49 U/L (12-78); ALKALINE PHOSPHATASE 87 U/L (45-117); ANION GAP 6 mmol/L (5-15); BILIRUBIN,TOTAL 0.7 mg/dL (0.2-1.0); CREATININE 0.67 mg/dL (0.55-1.02); TOTAL PROTEIN 6.7 g/dL (6.4-8.2)
[2017-08-31 06:21] LABS: MEAN CORPUSCULAR HEMOGLOBIN 32.8 pg (27.0-34.8); MEAN CORPUSCULAR HGB CONC 33.5 g/dL (32.4-35.8); MEAN CORPUSCULAR VOLUME 97.8 fL (80-100); MEAN PLATELET VOLUME 11.3 fL (7.4-10.4); PLATELET COUNT 65 x10^3/uL (130-400); RED BLOOD COUNT 3.92 x10^6/uL (3.82-5.3); RED CELL DISTRIBUTION WIDTH 12.9 % (9.6-15.2)
[2017-08-31 06:25] LABS: BASOPHILS # (AUTO) 0.03 x10^3/uL (0-0.1); BASOPHILS % (AUTO) 1 % (0-1); EOSINOPHILS # (AUTO) 0.13 x10^3/uL (0-0.4); EOSINOPHILS % (AUTO) 4 % (1-7); LYMPHOCYTES # (AUTO) 1.56 x10^3/uL (1-3.4); LYMPHOCYTES % (AUTO) 45 % (22-44); MD SCAN; MONOCYTES # (AUTO) 0.43 x10^3/uL (0.2-0.8); MONOCYTES % (AUTO) 13 % (2-9); NEUTROPHILS # (AUTO) 1.32 x10^3/uL (1.8-6.8); NEUTROPHILS % (AUTO) 38 % (42-75)
[2017-08-31 07:07] VITALS: BP 118/78
[2017-08-31] MEDS ORDERED: MULTIVITAMIN 1 TABLET PO SCH (09:00)
[2017-08-31] MEDS ORDERED: THIAMINE 100MG TABLET PO SCH (09:00)
[2017-08-31] MEDS ORDERED: FOLIC ACID 1 MG TABLET PO SCH (09:00)
[2017-08-31] MEDS: PRASUGREL 10 MG TABLET PO SCH (09:32)
[2017-08-31] MEDS: TRAZODONE 50MG TABLET PO SCH (09:32)
[2017-08-31] MEDS ORDERED: ERGOCALCIFEROL 50,000 UNIT CAPSULE PO SCH (10:00)
[2017-08-31] MEDS ORDERED: LISINOPRIL 5 MG TABLET PO SCH (10:00)
[2017-08-31] MEDS: CIPROFLOXACIN/PMX 400MG/200ML 200 ML IV SCH (11:29)
[2017-08-31] MEDS ORDERED: CIPR500T87 PO (12:57)
[2017-08-31 13:04] VITALS: BP 163/70
[2017-08-31 15:00] VITALS: BP 143/72
== END 2017-08-31 16:45 | disposition left against medical advice (07) | DRG 683 ==
LOC: ED 18:38 → EDIP 19:58 → 4NOR 22:06
PROVIDERS: ADMIT Hospitalist; ATTEND Hospitalist
DX: N17.0 Acute kidney failure with tubular necrosis (principal); E87.2 Acidosis; D69.6 Thrombocytopenia, unspecified; I11.0 Hypertensive heart disease with heart failure; I95.9 Hypotension, unspecified; E87.1 Hypo-osmolality and hyponatremia; I50.32 Chronic diastolic (congestive) heart failure; N39.0 Urinary tract infection, site not specified; E86.9 Volume depletion, unspecified; N20.0 Calculus of kidney; E66.9 Obesity, unspecified; F15.90 Other stimulant use, unspecified, uncomplicated; J44.9 Chronic obstructive pulmonary disease, unspecified; I25.10 Atherosclerotic heart disease of native coronary artery without angina pectoris; Z53.21 Procedure and treatment not carried out due to patient leaving prior to being seen by health care provider; F10.21 Alcohol dependence, in remission; I25.2 Old myocardial infarction; Z72.0 Tobacco use; Z87.440 Personal history of urinary (tract) infections; Z87.442 Personal history of urinary calculi; Z95.5 Presence of coronary angioplasty implant and graft; Z68.32 Body mass index [BMI] 32.0-32.9, adult
CPT/HCPCS: 36415; 74018; 76770; 80048; 80053; 80307; 81001; 82306; 82310; 83735; 83970; 84100; 84550; 85025; 87086; 93005; 96360; 96361; J0696; J0744; J7030

== ENCOUNTER 2018-04-20 09:29 | Inpatient (IN) | payer MEDICAID, OTHER ==
[~2018-04-20] VITALS: Ht 166.9 cm; Wt 75.8 kg
[~2018-04-20 09:29] MED LIST changes: +ASPI-496 PO; +BUSP5TAB2 PO; +CLON0.1T PO; +DOCU-131 PO; +HYDR-3237 PO; +PHEN100T90 PO; +TAMS-11 PO; +TRAZ-136 PO; -TRAZ50TA18 PO
[2018-04-20] MEDS ORDERED: ALBUTEROL/IPRATROPIUM 2.5MG/0.5MG, 3 ML NPPB SCH (10:00)
[2018-04-20] MEDS ORDERED: ASPIRIN 81 MG TABLET CHEW PO ONE (10:00)
[2018-04-20] MEDS ORDERED: ALBUTEROL/IPRATROPIUM 2.5MG/0.5MG, 3 ML ONE (10:06)
[2018-04-20] MEDS ORDERED: ASPIRIN 81 MG TABLET CHEW ONE (10:26)
[2018-04-20 10:32] LABS: ALBUMIN 3.4 g/dL (3.4-5.0); ANION GAP 7 mmol/L (5-15); CALCIUM 8.5 mg/dL (8.5-10.1); CHLORIDE 106 mmol/L (98-107); CREATININE 0.74 mg/dL (0.55-1.02)
[2018-04-20 10:35] LABS: TROPONIN I 0.082 ng/mL (0.000-0.045)
[2018-04-20 11:27] LABS: MEAN CORPUSCULAR HEMOGLOBIN 33.6 pg (27.0-34.8); MEAN CORPUSCULAR HGB CONC 34.8 g/dL (32.4-35.8); MEAN CORPUSCULAR VOLUME 96.6 fL (80-100); RED BLOOD COUNT 4.25 x10^6/uL (3.82-5.3); RED CELL DISTRIBUTION WIDTH 13.6 % (9.6-15.2)
[2018-04-20] MEDS ORDERED: SODIUM CHLORIDE FLUSH 10ML SYR IVF PRN (11:30)
[2018-04-20] MEDS ORDERED: METOPROLOL (11:36)
[2018-04-20 11:52] LABS: MEAN PLATELET VOLUME 9.7 fL (7.4-10.4); PLATELET COUNT 71 x10^3/uL (130-400)
[2018-04-20] MEDS ORDERED: NS + 20MEQ KCL 1,000 ML IV SCH (12:01)
[2018-04-20 12:03] LABS: BASOPHILS # (AUTO) 0.01 x10^3/uL (0-0.1); BASOPHILS % (AUTO) 0 % (0-1); EOSINOPHILS # (AUTO) 0.09 x10^3/uL (0-0.4); EOSINOPHILS % (AUTO) 2 % (1-7); LYMPHOCYTES % (AUTO) 16 % (22-44); MD SCAN; MONOCYTES # (AUTO) 0.28 x10^3/uL (0.2-0.8); MONOCYTES % (AUTO) 5 % (2-9); NEUTROPHILS # (AUTO) 4.38 x10^3/uL (1.8-6.8); NEUTROPHILS % (AUTO) 78 % (42-75)
[2018-04-20] MEDS ORDERED: POLYETHYLENE GLYCOL 17 GM PACKET PO PRN (12:30)
[2018-04-20] MEDS ORDERED: DOCUSATE 100 MG CAPSULE PO PRN (12:30)
[2018-04-20] MEDS ORDERED: ONDANSETRON 2MG/ML, 2ML IVPush PRN (12:30)
[2018-04-20] MEDS ORDERED: methylPREDNISolone SOD SUCC 40 MG/ML ONE (12:34)
[2018-04-20] MEDS ORDERED: NICOTINE 14MG/24 HR PATCH.TD24 ONE (12:35)
[2018-04-20] MEDS ORDERED: ENOXAPARIN 40 MG/0.4 ML ONE (12:35)
[2018-04-20 12:55] VITALS: BP 115/83
[2018-04-20] MEDS: ENOXAPARIN 40 MG/0.4 ML SQ SCH (12:58)
[2018-04-20] MEDS: TICAGRELOR 90 MG TABLET PO SCH ×2 (12:58→21:16)
[2018-04-20] MEDS: NICOTINE 14MG/24 HR PATCH.TD24 TD SCH (12:58)
[2018-04-20] MEDS: methylPREDNISolone SOD SUCC 40 MG/ML IVPush SCH ×2 (12:58→21:16)
[2018-04-20] MEDS ORDERED: OXYB5TAB PO (13:21)
[2018-04-20] MEDS ORDERED: METO25TA91 PO (13:21)
[2018-04-20] MEDS: morphine SULFATE 10 MG/ML, 1ML IVPush PRN ×2 (14:12→16:12)
[2018-04-20] MEDS: AZITHROMYCIN 500 MG in SODIUM CHLORIDE 0.9% 250 ML IV SCH (14:27)
[2018-04-20] MEDS: ALBUTEROL/IPRATROPIUM 2.5MG/0.5MG, 3 ML NPPB SCH ×2 (15:00→20:00)
[2018-04-20 16:05] LABS: TROPONIN I 0.074 ng/mL (0.000-0.045)
[2018-04-20] MEDS: CEFTRIAXONE 1,000 MG in SODIUM CHLORIDE 0.9% 50 ML IVPB SCH (17:49)
[2018-04-20 19:58] VITALS: BP 158/78
[2018-04-20] MEDS: TAMSULOSIN 0.4 MG CAP.ER.24H PO SCH (21:16)
[2018-04-21] MEDS: HYDROcodone/APAP 5/325 TABLET PO PRN ×3 (03:15→20:49)
[2018-04-21 03:22] VITALS: BP 161/81
[2018-04-21] MEDS: ALBUTEROL/IPRATROPIUM 2.5MG/0.5MG, 3 ML NPPB SCH ×5 (05:25→21:37)
[2018-04-21] MEDS: methylPREDNISolone SOD SUCC 40 MG/ML IVPush SCH ×3 (05:39→20:50)
[2018-04-21] MEDS: ASPIRIN 325 MG TABLET EC PO SCH (05:39)
[2018-04-21 05:44] LABS: CHLORIDE 108 mmol/L (98-107)
[2018-04-21] MEDS ORDERED: LISINOPRIL 10 MG TABLET ONE (05:53)
[2018-04-21] MEDS: LISINOPRIL 10 MG TABLET PO SCH (05:56)
[2018-04-21 06:00] LABS: ANION GAP 8 mmol/L (5-15); CALCIUM 8.9 mg/dL (8.5-10.1); CHOL/HDL RATIO 1.7; CHOLESTEROL, TOTAL 97 mg/dL (140-239); CREATININE 0.71 mg/dL (0.55-1.02); HDL CHOL % 60 % (28-40); HDL CHOLESTEROL (DIRECT) 58 mg/dL (40-60); LDL CHOLESTEROL,CALCULATED 26 mg/dL (54-169); LDL/HDL RATIO 0.4 (0.5-3.0); TRIGLYCERIDES 65 mg/dL (50-200); TROPONIN I 0.071 ng/mL (0.000-0.045); VLDL CHOLESTEROL 13 mg/dL (0-25)
[2018-04-21 07:07] VITALS: BP 189/66
[2018-04-21 08:19] VITALS: BP 153/68
[2018-04-21] MEDS ORDERED: ENALAPRILAT 1.25 MG/ML, 2ML IV PRN (08:30)
[2018-04-21] MEDS: TICAGRELOR 90 MG TABLET PO SCH ×2 (08:46→20:50)
[2018-04-21] MEDS: SENNA/DOCUSATE TABLET PO SCH (08:46)
[2018-04-21] MEDS: CARVEDILOL 6.25 MG TABLET PO SCH ×2 (08:47→18:05)
[2018-04-21] MEDS ORDERED: TEMPLATE NON-FORMULARY MED. (Aspirin** (Aspir 81**) 81 MG) PO SCH (09:00)
[2018-04-21] MEDS: GUAIFENESIN/COD200MG-20MG/10ML LIQUID PO PRN ×2 (11:53→18:05)
[2018-04-21] MEDS: ENOXAPARIN 40 MG/0.4 ML SQ SCH (12:33)
[2018-04-21 12:51] VITALS: BP 152/84
[2018-04-21] MEDS: NICOTINE 14MG/24 HR PATCH.TD24 TD SCH (13:16)
[2018-04-21] MEDS: AZITHROMYCIN 500 MG in SODIUM CHLORIDE 0.9% 250 ML IV SCH (15:14)
[2018-04-21] MEDS: CEFTRIAXONE 1,000 MG in SODIUM CHLORIDE 0.9% 50 ML IVPB SCH (18:05)
[2018-04-21] MEDS: TAMSULOSIN 0.4 MG CAP.ER.24H PO SCH (20:50)
[2018-04-21 21:10] VITALS: BP 170/93
[2018-04-21 21:50] VITALS: BP 154/63
[2018-04-22] MEDS: GUAIFENESIN/COD200MG-20MG/10ML LIQUID PO PRN ×2 (01:20→17:08)
[2018-04-22 02:31] VITALS: BP 171/81
[2018-04-22 02:51] VITALS: BP 167/76
[2018-04-22 04:00] VITALS: BP 168/73
[2018-04-22] MEDS: hydrALAzine 20 MG/ML, 1ML IV PRN ×3 (04:56→16:22)
[2018-04-22] MEDS: ASPIRIN 325 MG TABLET EC PO SCH (05:05)
[2018-04-22] MEDS: CARVEDILOL 6.25 MG TABLET PO SCH ×2 (05:06→16:19)
[2018-04-22] MEDS: methylPREDNISolone SOD SUCC 40 MG/ML IVPush SCH ×3 (05:06→22:08)
[2018-04-22] MEDS: ALBUTEROL/IPRATROPIUM 2.5MG/0.5MG, 3 ML NPPB SCH ×4 (06:32→19:45)
[2018-04-22] MEDS ORDERED: LABETALOL 5MG/ML, 20ML IVPush PRN (07:00)
[2018-04-22] MEDS: SENNA/DOCUSATE TABLET PO SCH (09:00)
[2018-04-22 09:07] VITALS: BP 181/92
[2018-04-22] MEDS: LISINOPRIL 10 MG TABLET PO SCH (09:32)
[2018-04-22] MEDS: TICAGRELOR 90 MG TABLET PO SCH ×2 (09:32→22:08)
[2018-04-22 11:35] VITALS: BP 141/90
[2018-04-22] MEDS: AZITHROMYCIN 500 MG in SODIUM CHLORIDE 0.9% 250 ML IV SCH ×3 (14:17→18:21)
[2018-04-22] MEDS ORDERED: BIVALIRUDIN 250 MG ONE (14:45)
[2018-04-22] MEDS ORDERED: VERAPAMIL 2.5 MG/ML, 2ML ONE (14:45)
[2018-04-22] MEDS ORDERED: MIDAZOLAM 1 MG/ML, 5ML ONE (14:45)
[2018-04-22] MEDS ORDERED: FENTANYL PF 100 MCG/2ML ONE (14:45)
[2018-04-22] MEDS ORDERED: HEPARIN 1,000 UNITS/ML, 10ML ONE (14:48)
[2018-04-22] MEDS ORDERED: LIDOCAINE 1%, 50ML ONE (15:17)
[2018-04-22] MEDS ORDERED: LABETALOL 5MG/ML, 20ML ONE (15:51)
[2018-04-22] MEDS: SODIUM CHLORIDE 0.9% 1,000 ML IV SCH (16:08)
[2018-04-22] MEDS: NICOTINE 14MG/24 HR PATCH.TD24 TD SCH (16:22)
[2018-04-22] MEDS: CEFTRIAXONE 1,000 MG in SODIUM CHLORIDE 0.9% 50 ML IVPB SCH (17:08)
[2018-04-22 19:12] VITALS: BP 156/86
[2018-04-22] MEDS: HYDROcodone/APAP 5/325 TABLET PO PRN (22:09)
[2018-04-22] MEDS: TAMSULOSIN 0.4 MG CAP.ER.24H PO SCH (22:09)
[2018-04-23] VITALS (8 sets, daily range): BP systolic 148–183; BP diastolic 77–95
[2018-04-23] MEDS: SODIUM CHLORIDE 0.9% 1,000 ML IV SCH ×3 (00:08→16:08)
[2018-04-23] MEDS: GUAIFENESIN/COD200MG-20MG/10ML LIQUID PO PRN ×2 (03:41→18:11)
[2018-04-23] MEDS: ACETAMINOPHEN 325 MG TABLET PO PRN ×2 (03:41→12:59)
[2018-04-23] MEDS: hydrALAzine 20 MG/ML, 1ML IV PRN (03:42)
[2018-04-23 05:20] LABS: MEAN CORPUSCULAR HEMOGLOBIN 32.7 pg (27.0-34.8); MEAN CORPUSCULAR HGB CONC 34.5 g/dL (32.4-35.8); MEAN PLATELET VOLUME 9.8 fL (7.4-10.4); PLATELET COUNT 98 x10^3/uL (130-400); RED BLOOD COUNT 4.51 x10^6/uL (3.82-5.3); RED CELL DISTRIBUTION WIDTH 14.4 % (9.6-15.2)
[2018-04-23] MEDS: HYDROcodone/APAP 5/325 TABLET PO PRN ×3 (05:31→21:10)
[2018-04-23 06:04] LABS: BASOPHILS # (AUTO) 0.01 x10^3/uL (0-0.1); BASOPHILS % (AUTO) 0 % (0-1); EOSINOPHILS % (AUTO) 0 % (1-7); LYMPHOCYTES # (AUTO) 0.22 x10^3/uL (1-3.4); LYMPHOCYTES % (AUTO) 3 % (22-44); MD SCAN; MONOCYTES # (AUTO) 0.23 x10^3/uL (0.2-0.8); MONOCYTES % (AUTO) 3 % (2-9); NEUTROPHILS # (AUTO) 6.77 x10^3/uL (1.8-6.8); NEUTROPHILS % (AUTO) 94 % (42-75)
[2018-04-23] MEDS: ASPIRIN 81 MG TABLET EC PO SCH (06:13)
[2018-04-23] MEDS: methylPREDNISolone SOD SUCC 40 MG/ML IVPush SCH (06:14)
[2018-04-23] MEDS: CARVEDILOL 6.25 MG TABLET PO SCH (06:14)
[2018-04-23] MEDS: ALBUTEROL/IPRATROPIUM 2.5MG/0.5MG, 3 ML NPPB SCH ×4 (07:00→20:30)
[2018-04-23] MEDS: TICAGRELOR 90 MG TABLET PO SCH (08:16)
[2018-04-23] MEDS: LISINOPRIL 10 MG TABLET PO SCH ×2 (08:16→21:00)
[2018-04-23] MEDS: SENNA/DOCUSATE TABLET PO SCH (09:00)
[2018-04-23 09:31] LABS: ANION GAP 8 mmol/L (5-15); CALCIUM 8.9 mg/dL (8.5-10.1); CHLORIDE 109 mmol/L (98-107); CREATININE 1.11 mg/dL (0.55-1.02)
[2018-04-23] MEDS ORDERED: LISINOPRIL 10 MG TABLET PO STA (13:51)
[2018-04-23] MEDS ORDERED: AMLODIPINE 5 MG TABLET PO SCH (14:00)
[2018-04-23] MEDS ORDERED: ALBUTEROL/IPRATROPIUM 2.5MG/0.5MG, 3 ML HHN PRN (14:30)
[2018-04-23] MEDS: NICOTINE 14MG/24 HR PATCH.TD24 TD SCH (15:16)
[2018-04-23] MEDS: LEVOFLOXACIN 500 MG TABLET PO SCH (15:16)
[2018-04-23 16:15] LABS: CULTURE INDICATED? NO; MICROSCOPIC NOT IND
[2018-04-23] MEDS: CARVEDILOL 3.125 MG TABLET PO SCH (18:10)
[2018-04-23] MEDS ORDERED: TICAGRELOR 90 MG TABLET PO SCH (21:00)
[2018-04-23] MEDS: TAMSULOSIN 0.4 MG CAP.ER.24H PO SCH (21:00)
[2018-04-24] VITALS (7 sets, daily range): BP systolic 133–186; BP diastolic 68–117
[2018-04-24] MEDS: SODIUM CHLORIDE 0.9% 1,000 ML IV SCH (01:40)
[2018-04-24] MEDS: GUAIFENESIN/COD200MG-20MG/10ML LIQUID PO PRN ×2 (02:01→15:22)
[2018-04-24] MEDS: hydrALAzine 20 MG/ML, 1ML IV PRN (02:18)
[2018-04-24] MEDS: CARVEDILOL 3.125 MG TABLET PO SCH ×2 (06:21→17:17)
[2018-04-24] MEDS: ASPIRIN 81 MG TABLET EC PO SCH (06:21)
[2018-04-24] MEDS: ALBUTEROL/IPRATROPIUM 2.5MG/0.5MG, 3 ML NPPB SCH ×4 (07:00→19:32)
[2018-04-24] MEDS: SENNA/DOCUSATE TABLET PO SCH (09:00)
[2018-04-24] MEDS: CLOPIDOGREL 75 MG TABLET PO SCH (09:09)
[2018-04-24] MEDS: AMLODIPINE 5 MG TABLET PO SCH (09:09)
[2018-04-24] MEDS: LISINOPRIL 10 MG TABLET PO SCH ×2 (09:09→21:16)
[2018-04-24] MEDS: NICOTINE 14MG/24 HR PATCH.TD24 TD SCH (13:51)
[2018-04-24] MEDS: LEVOFLOXACIN 500 MG TABLET PO SCH (15:22)
[2018-04-24] MEDS: TAMSULOSIN 0.4 MG CAP.ER.24H PO SCH (21:00)
[2018-04-24] MEDS: HYDROcodone/APAP 5/325 TABLET PO PRN (21:16)
[2018-04-25 02:34] VITALS: BP 143/73
[2018-04-25] MEDS: CARVEDILOL 3.125 MG TABLET PO SCH (05:45)
[2018-04-25] MEDS: ASPIRIN 81 MG TABLET EC PO SCH (05:45)
[2018-04-25] MEDS: GUAIFENESIN/COD200MG-20MG/10ML LIQUID PO PRN ×2 (05:52→12:02)
[2018-04-25 07:52] VITALS: BP 148/76
[2018-04-25] MEDS: ALBUTEROL/IPRATROPIUM 2.5MG/0.5MG, 3 ML NPPB SCH ×3 (07:57→14:34)
[2018-04-25] MEDS: SENNA/DOCUSATE TABLET PO SCH (09:00)
[2018-04-25] MEDS: HYDROcodone/APAP 5/325 TABLET PO PRN (09:11)
[2018-04-25] MEDS: LISINOPRIL 10 MG TABLET PO SCH (09:12)
[2018-04-25] MEDS: CLOPIDOGREL 75 MG TABLET PO SCH (09:12)
[2018-04-25] MEDS: AMLODIPINE 5 MG TABLET PO SCH (09:12)
[2018-04-25] MEDS ORDERED: CARV3.1212 PO (10:37)
[2018-04-25] MEDS ORDERED: LISI-167 PO (10:37)
[2018-04-25] MEDS ORDERED: AMLO5TAB7 PO (10:37)
[2018-04-25] MEDS ORDERED: BENZ100C PO (10:37)
[2018-04-25] MEDS ORDERED: CLOP75TA PO (10:37)
[2018-04-25] MEDS ORDERED: METH4TAB2 PO (10:37)
[2018-04-25] MEDS ORDERED: ATOR80TA PO (10:37)
[2018-04-25] MEDS ORDERED: TIOT4MIS5 INH (10:37)
[2018-04-25] MEDS ORDERED: ASPI-496 PO (10:37)
[2018-04-25] MEDS: NICOTINE 14MG/24 HR PATCH.TD24 TD SCH (12:02)
[2018-04-25] MEDS: LEVOFLOXACIN 500 MG TABLET PO SCH (15:15)
[2018-04-25 15:20] VITALS: BP 145/75
== END 2018-04-25 15:59 | disposition home or self-care (01) | DRG 250 ==
LOC: ED 11:23 → EDIP 11:24 → ED 11:32 → 5SO 12:34
PROVIDERS: ADMIT Internal Medicine; ATTEND Family Medicine
PROC: 02713ZZ Dilation of Coronary Artery, Two Arteries, Percutaneous Approach (ICD-10-PCS; principal; 2018-04-22)
PROC: 4A023N7 Measurement of Cardiac Sampling and Pressure, Left Heart, Percutaneous Approach (ICD-10-PCS; 2018-04-22)
PROC: B2111ZZ Fluoroscopy of Multiple Coronary Arteries using Low Osmolar Contrast (ICD-10-PCS; 2018-04-22)
PROC: B2151ZZ Fluoroscopy of Left Heart using Low Osmolar Contrast (ICD-10-PCS; 2018-04-22)
DX: T82.855A Stenosis of coronary artery stent, initial encounter (principal); I21.4 Non-ST elevation (NSTEMI) myocardial infarction; J96.00 Acute respiratory failure, unspecified whether with hypoxia or hypercapnia; I25.110 Atherosclerotic heart disease of native coronary artery with unstable angina pectoris; J44.1 Chronic obstructive pulmonary disease with (acute) exacerbation; Y84.8 Other medical procedures as the cause of abnormal reaction of the patient, or of later complication, without mention of misadventure at the time of the procedure; Y92.89 Other specified places as the place of occurrence of the external cause; I10 Essential (primary) hypertension; F17.210 Nicotine dependence, cigarettes, uncomplicated; E78.5 Hyperlipidemia, unspecified; I25.2 Old myocardial infarction; Z66 Do not resuscitate; Z87.19 Personal history of other diseases of the digestive system; Z87.442 Personal history of urinary calculi; Z91.19 Patient's noncompliance with other medical treatment and regimen; Z95.5 Presence of coronary angioplasty implant and graft; Z79.82 Long term (current) use of aspirin; Z79.899 Other long term (current) drug therapy
CPT/HCPCS: 36415; 92920; 93458; 99285; J7620; 71046; 80048; 80061; 81003; 82040; 83735; 83880; 84484; 85025; 93005; 93306; 94640; 99156; 99157; C1760; C1769; C1894; G0378; J0456; J0583; J0696; J1644; J1650; J2250; J3010; J3480; J3490; 92928; C1725; C1887; J0360; J2270; J2920; J7050; J7512; Q9967